=== PATIENT | female | born 1970 | race Caucasian/White ===

== ENCOUNTER 2016-12-03 05:46 | Emergency (ER) | payer SELFPAY ==
[~2016-12-03] VITALS: Ht 154.9 cm; Wt 68.0 kg
[2016-12-03] MEDS ORDERED: KETOROLAC 60MG/2ML VIAL IM ONE (07:45)
[2016-12-03 09:44] VITALS: BP 122/78
== END 2016-12-03 10:20 | disposition home or self-care (01) ==
LOC: ER 07:23
DX: M54.30 Sciatica, unspecified side (principal)
CPT/HCPCS: 81025; 96372; 99283; J1885; Z7610